=== PATIENT | male | born 1955 | race Caucasian/White ===

== ENCOUNTER → 2016-11-11 | Outpatient (CLI) | payer BC ==
[~2016-11-11] MED LIST: DEXMETHYLPHENIDA5 MG PO; MEDROL 4MG DOSPA4 MG PO; NORCO 325 MG-7.1 TAB PO; WELLBUTRIN SR150 M1 PO
== END ==
LOC: BHSO 10:19
DX: F90.0 Attention-deficit hyperactivity disorder, predominantly inattentive type (principal)

== ENCOUNTER → 2017-05-23 | Outpatient (CLI) | payer BC | LOC: BHSO 09:11 | DX: F90.0 Attention-deficit hyperactivity disorder, predominantly inattentive type (principal) ==

== ENCOUNTER 2017-05-27 21:48 | Emergency (ER) | payer BC ==
[~2017-05-27] VITALS: Ht 170.2 cm; Wt 77.3 kg
[2017-05-27] MEDS ORDERED: DEXMETHYLPHENIDA5 MG PO (21:54)
[2017-05-27] MEDS ORDERED: WELLBUTRIN SR150 M1 PO (21:54)
[2017-05-27] MEDS ORDERED: NORCO 325 MG-7.1 TAB PO (22:32)
[2017-05-27] MEDS ORDERED: MEDROL 4MG DOSPA4 MG PO (22:32)
[2017-05-27 22:40] VITALS: BP 133/78; PULSE 58
== END 2017-05-27 22:42 | disposition home or self-care (01) ==
LOC: COL.ER 21:48
DX: M54.42 Lumbago with sciatica, left side (principal); F32.9 Major depressive disorder, single episode, unspecified; F90.9 Attention-deficit hyperactivity disorder, unspecified type

== ENCOUNTER → 2017-11-20 | Outpatient (CLI) | payer BC | LOC: BHSO 09:18 | DX: F90.0 Attention-deficit hyperactivity disorder, predominantly inattentive type (principal) | CPT/HCPCS: G0463 ==

== ENCOUNTER → 2018-05-21 | Outpatient (CLI) | payer BC | LOC: BHSO 08:56 | DX: F90.0 Attention-deficit hyperactivity disorder, predominantly inattentive type (principal) ==

== ENCOUNTER → 2018-11-18 | Outpatient (CLI) | payer BC | LOC: BHSO 09:01 | DX: F90.0 Attention-deficit hyperactivity disorder, predominantly inattentive type (principal) | CPT/HCPCS: G0463 ==

== ENCOUNTER → 2019-05-06 | Outpatient (CLI) | payer BC | LOC: BHSO 09:17 | DX: F90.0 Attention-deficit hyperactivity disorder, predominantly inattentive type (principal) | CPT/HCPCS: G0463 ==

== ENCOUNTER → 2019-11-04 | Outpatient (CLI) | payer BC | LOC: BHSO 08:56 | DX: F90.0 Attention-deficit hyperactivity disorder, predominantly inattentive type (principal) | CPT/HCPCS: G0463 ==

== ENCOUNTER → 2020-05-04 | Outpatient (CLI) | payer BC | LOC: BHSO 08:55 | DX: F90.0 Attention-deficit hyperactivity disorder, predominantly inattentive type (principal) | CPT/HCPCS: G0463 ==

== ENCOUNTER → 2021-07-18 | Outpatient (CLI) | payer MEDICARE | LOC: COL.RAD 12:08 | DX: M75.121 Complete rotator cuff tear or rupture of right shoulder, not specified as traumatic (principal); M67.88 Other specified disorders of synovium and tendon, other site | CPT/HCPCS: A9585; Q9967 ==